=== PATIENT | male | born 1955 | race Two or more races ===

== ENCOUNTER 2023-11-21 21:08 | Emergency (ER) | payer MEDICARE, OTHER ==
[~2023-11-21] VITALS: Ht 170.2 cm; Wt 90.0 kg
[2023-11-21 21:18] VITALS: BP 154/76; PULSE 84; RESP 17; TEMP 98.6
[2023-11-21] MEDS: KETOROLAC TROMETHAMINE 60 MG/2 ML VIAL IM ONE (23:25)
[2023-11-22] MEDS: BACITRACIN 0.9 GM PACKET OINTMENT TP ONE (00:59)
== END 2023-11-22 01:23 | disposition home or self-care (01) ==
LOC: EMS 21:19
DX: S70.311A Abrasion, right thigh, initial encounter (principal); M21.371 Foot drop, right foot; M25.571 Pain in right ankle and joints of right foot; R10.2 Pelvic and perineal pain; Z88.5 Allergy status to narcotic agent; Y93.39 Activity, other involving climbing, rappelling and jumping off; Y93.89 Activity, other specified; Y92.89 Other specified places as the place of occurrence of the external cause; Y99.8 Other external cause status
CPT/HCPCS: 99284; 72170; 73610; 96372; J1885